=== PATIENT | female | born 1990 ===

== ENCOUNTER → 2025-07-21 | Outpatient (CLI) | payer OTHER ==
--- NOTE | 2025-07-22 09:24 | HMCIMG ---
EXAM: CT Chest without Intravenous Contrast. CLINICAL HISTORY: HEARTSAVER SCREENING TECHNIQUE: Axial computed tomography images of the chest without intravenous contrast. COMPARISON: None provided. FINDINGS: LUNGS: The lungs are clear. No pulmonary mass. PLEURAL SPACES: No pneumothorax evident. No pleural effusions. HEART: No cardiomegaly. No significant pericardial effusion. Left Main Coronary Artery: 0 Left Anterior Descending Artery: 0 Left Circumflex Artery: 0 Right Coronary Artery: 0 Total Calcium Score: 0 LYMPH NODES: No lymphadenopathy is evident. BONES: No focal osseous abnormality or acute fracture. UPPER ABDOMEN: The upper abdominal solid organs are unremarkable. IMPRESSION: A Calcium Score of 0 places the patient in the approximate 0 percentile, based on the [facility] data calculator. Please go to: [email or web address] , for a description of the calculator. /Shimon
== END | disposition home or self-care (01) ==
LOC: RAH 10:16
PROVIDERS: ATTEND Internal Medicine
DX: Z13.6 Encounter for screening for cardiovascular disorders (principal); I10 Essential (primary) hypertension
CPT/HCPCS: 75571